=== PATIENT | female | born 1965 | race Caucasian/White ===

== ENCOUNTER 2017-02-07 10:30 | Emergency (ER) | payer SELFPAY | END 2017-02-07 11:55 | disposition left against medical advice (07) | LOC: ER1 10:30 | DX: Z53.21 Procedure and treatment not carried out due to patient leaving prior to being seen by health care provider (principal) ==

== ENCOUNTER → 2021-01-26 | Outpatient (CLI) | payer OTHER ==
[~2021-01-26] MED LIST: GLUCOPHAGE1000 MG PO; GLUCOTROL5 MG PO; IBUPROFEN600 MG PO; PERCOCET 10-321 EACH PO; PROTONIX40 MG PO
== END ==
LOC: RAD 18:56
DX: M25.532 Pain in left wrist (principal)
CPT/HCPCS: 73110

== ENCOUNTER → 2021-01-31 | Outpatient (CLI) | payer OTHER | LOC: EXRD 15:08 | DX: M79.642 Pain in left hand (principal) | CPT/HCPCS: 73130 ==

== ENCOUNTER 2021-04-30 16:47 | Emergency (ER) | payer OTHER ==
[2021-04-30 19:11] LABS: HEMOGLOBIN 14.3 gm/dl (12.3-15.3); RED BLOOD COUNT 4.53 M/UL (4.00-5.10); WHITE BLOOD COUNT 8.1 K/UL (4.5-11.0)
[2021-04-30 19:44] LABS: BUN/CREATININE RATIO 21 (0-10)
[2021-04-30] MEDS ORDERED: CEFUROXIME500 MG PO (23:30)
[2021-04-30] MEDS ORDERED: PROTONIX40 MG PO (23:30)
== END 2021-04-30 23:55 | disposition home or self-care (01) ==
LOC: ER1 16:47
PROVIDERS: Physician Assistant
DX: R07.89 Other chest pain (principal); N39.0 Urinary tract infection, site not specified; R10.13 Epigastric pain; K42.9 Umbilical hernia without obstruction or gangrene; E78.5 Hyperlipidemia, unspecified; Z79.899 Other long term (current) drug therapy; Z88.6 Allergy status to analgesic agent
CPT/HCPCS: 80053; 81001; 82550; 82553; 83690; 83735; 83874; 83880; 84484; 85025; 85610; 85730; 93005; 99285; Q9967